=== PATIENT | female | born 1990 | race Two or more races ===

== ENCOUNTER 2018-07-05 14:15 | Emergency (ER) | payer OTHER ==
[~2018-07-05] VITALS: Ht 157.5 cm; Wt 97.1 kg
[2018-07-05] MEDS ORDERED: IV NORMAL SALINE 1000ML BAG 1,000 ML IV SCH (14:46)
--- NOTE | 2018-07-05 14:58 | PHYS DOC ---
Past Medical History Past Medical History: No Pertinent History Past Surgical History: Appendectomy Alcohol Use: None Drug Use: None Adult General Chief Complaint Chief Complaint: ABDOMINAL PAIN HPI HPI Patient is a 27 year old female who presents with complaining of abdominal pain. Patient complaining of intermittent episodes of right-sided abdominal pain for the last 5 days as a sharp pain that happens several times a day and getting worse with empty stomach. She rated her pain 7/10 and complaining of nausea and 2 episodes of nonbloody vomiting. Patient states she had diarrhea that resolved after one day and has had normal bowel movement for 2 times every day patient denies fever and chills, sick contact, urinary symptoms, vaginal bleeding or discharge, , history of abdominal pain. Patient states she took admitted once without improvement of her pain. Patient has history of appendectomy. Review of Systems Review of Systems Constitutional: Denies fever or chills [] Eyes: Denies change in visual acuity, redness, or eye pain [] HENT: Denies nasal congestion or sore throat [] Respiratory: Denies cough or shortness of breath [] Cardiovascular: No additional information not addressed in HPI [] GI: Reports abdominal pain, nausea, vomiting, diarrhea [] : Denies dysuria or hematuria [] Musculoskeletal: Denies back pain or joint pain [] Integument: Denies rash or skin lesions [] Neurologic: Denies headache, focal weakness or sensory changes [] Endocrine: Denies polyuria or polydipsia [] All other systems were reviewed and found to be within normal limits, except as documented in this note. Current Medications Current Medications Current Medications Medications (Trade) Dose Ordered Sig/[facility] Start Time Stop Time Status Last Admin Dose Admin Ketorolac Tromethamine (Toradol 30mg Vial) 30 mg 1X ONCE 07/05/18 15:00 07/05/18 15:01 DC 07/05/18 15:27 30 MG Ondansetron HCl (Zofran) 4 mg 1X ONCE 07/05/18 15:00 07/05/18 15:01 DC 07/05/18 15:28 4 MG Sodium Chloride 1,000 ml @ 1,000 mls/hr Q1H 07/05/18 14:46 07/05/18 15:45 DC 07/05/18 15:24 1,000 MLS/HR Allergies Allergies Allergies Coded Allergies Type Severity Reaction Last Updated Verified No Known Drug Allergies 07/05/18 No Physical Exam Physical Exam Constitutional: Well developed, well nourished, mild distress, non-toxic appearance. [] HENT: Normocephalic, atraumatic, oropharynx moist. Eyes: PERRLA, EOMI, conjunctiva normal, no discharge. [] Neck: Normal range of motion, no tenderness, supple, no stridor. [] Cardiovascular:Heart rate regular rhythm, no murmur [] Lungs & Thorax: Bilateral breath sounds clear to auscultation [] Abdomen: Bowel sounds normal, soft, right upper quadrant guarding, no tenderness , no masses, no pulsatile masses. [] Skin: Warm, dry, no erythema, no rash. [] Back: No tenderness, no CVA tenderness. [] Extremities: No tenderness, no cyanosis, no clubbing, ROM intact, no edema. [] Neurologic: Alert and oriented X 3, normal motor function, normal sensory function, no focal deficits noted. [] Psychologic: Affect normal, judgement normal, mood normal. [] Current Patient Data Vital Signs Vital Signs Date Time Temp Pulse Resp B/P (MAP) Pulse Ox O2 Delivery O2 Flow Rate FiO2 07/05/18 15:29 87 16 131/79 (96) 98 Room Air 07/05/18 14:30 98.8 98.8 Lab Values Laboratory Tests Test 07/05/18 14:25 07/05/18 14:28 White Blood Count 7.4 x10^3/uL (4.0-11.0) Red Blood Count 4.79 x10^6/uL (3.50-5.40) Hemoglobin 14.2 g/dL (12.0-15.5) Hematocrit 42.5 % (36.0-47.0) Mean Corpuscular Volume 89 fL (79-100) Mean Corpuscular Hemoglobin 30 pg (25-35) Mean Corpuscular Hemoglobin Concent 33 g/dL (31-37) Red Cell Distribution Width 12.8 % (11.5-14.5) Platelet Count 250 x10^3/uL (140-400) Neutrophils (%) (Auto) 79 % (31-73) H Lymphocytes (%) (Auto) 15 % (24-48) L Monocytes (%) (Auto) 5 % (0-9) Eosinophils (%) (Auto) 0 % (0-3) Basophils (%) (Auto) 0 % (0-3) Neutrophils # (Auto) 5.8 x10^3uL (1.8-7.7) Lymphocytes # (Auto) 1.1 x10^3/uL (1.0-4.8) Monocytes # (Auto) 0.4 x10^3/uL (0.0-1.1) Eosinophils # (Auto) 0.0 x10^3/uL (0.0-0.7) Basophils # (Auto) 0.0 x10^3/uL (0.0-0.2) Urine Collection Type Unknown Urine Color Rosario Urine Clarity Clear Urine pH 6.0 Urine Specific [place] 1.025 Urine Protein Negative mg/dL (NEG-TRACE) Urine Glucose (UA) Negative mg/dL (NEG) Urine Ketones (Stick) 15 mg/dL (NEG) Urine Blood Negative (NEG) Urine Nitrite Negative (NEG) Urine Bilirubin Negative (NEG) Urine Urobilinogen Dipstick 0.2 mg/dL (0.2 mg/dL) Urine Leukocyte Esterase Negative (NEG) Urine RBC 0 /HPF (0-2) Urine WBC 1-4 /HPF (0-4) Urine Squamous Epithelial Cells Many /LPF Urine Bacteria Moderate /HPF (0-FEW) Urine Mucus Marked /LPF Sodium Level 135 mmol/L (136-145) L Potassium Level 3.6 mmol/L (3.5-5.1) Chloride Level 100 mmol/L (98-107) Carbon Dioxide Level 23 mmol/L (21-32) Anion Gap 12 (6-14) Blood Urea Nitrogen 11 mg/dL (7-20) Creatinine 0.5 mg/dL (0.6-1.0) L Estimated GFR (Cockcroft-Gault) 148.0 BUN/Creatinine Ratio 22 (6-20) H Glucose Level 98 mg/dL (70-99) Lactic Acid Level 1.0 mmol/L (0.4-2.0) Calcium Level 8.6 mg/dL (8.5-10.1) Total Bilirubin 0.9 mg/dL (0.2-1.0) Aspartate Amino Transferase (AST) 21 U/L (15-37) Alanine Aminotransferase (ALT) 55 U/L (14-59) Alkaline Phosphatase 89 U/L (46-116) Total Protein 8.2 g/dL (6.4-8.2) Albumin 3.8 g/dL (3.4-5.0) Albumin/Globulin Ratio 0.9 (1.0-1.7) L Lipase 104 U/L (73-393) POC Urine HCG, Qualitative Hcg negative (Negative) Laboratory Tests 07/05/18 14:25 Laboratory Tests 07/05/18 14:25 EKG EKG [] Radiology/Procedures Radiology/Procedures [facility] [address] [place] [address] IMAGING REPORT Signed PATIENT: WILLAM COWAN ACCOUNT: [id number] : 1990 LOCATION: ER AGE: 27 SEX: F EXAM STATUS: REG ER ORD. PHYSICIAN: YOMAIRA JUNIOR MD REASON: right upper quadrant pain PROCEDURE: ABDOMEN LTD Limited abdomen ultrasound study Clinical indications: Right upper quadrant abdominal pain. FINDINGS: Midline structures including the abdominal aorta and IVC and pancreas are not visualized due to overlying bowel gas. There is severe diffuse attenuation of sound throughout the liver which may be seen with fatty infiltration of the liver. This limits sonographic evaluation of the liver for focal hepatic masses. In fact, it is difficult to see the posterior aspect of the liver and therefore accurate liver length measurement cannot be made. However, the liver measures at least 16.6 cm in length. The gallbladder is normal without gallstones. The extra hepatic bile duct measures 5.2 mm in caliber which is normal. The length of the right kidney is 11.6 cm. No hydronephrosis or renal mass or perinephric fluid collection is seen on this side. IMPRESSION: Severe fatty infiltration of the liver. Midline structures are obscured. Normal sonographic evaluation of the gallbladder. Electronically signed by: Soniya Her MD (07/05/2018 3:32 PM) [facility] DICTATED and SIGNED BY: SONIYA HER MD DATE: 07/05/18 1532 Course & Med Decision Making Course & Med Decision Making Pertinent Labs and Imaging studies reviewed. (See chart for details) Evaluation of patient in ER showed 27-year-old female patient with complaining of intermittent episodes of right-sided abdominal pain and nausea and diarrhea and vomiting for 5 days. Patient had unremarkable physical exam. Gallbladder ultrasound was unremarkable except for severe fatty liver. Patient treated with IV fluids and Zofran and Toradol and felt better. Patient was informed about the result and needs to follow-up with her primary care physician regarding fatty liver. Dragon Disclaimer Dragon Disclaimer This electronic medical record was generated, in whole or in part, using a voice recognition dictation system. Departure Departure Impression: Primary Impression: Acute gastroenteritis Additional Impressions: Fatty liver Abdominal pain Disposition: HOME, SELF-CARE (at 1618) Condition: IMPROVED Patient Instructions: Diet for Diarrhea, Adult, Viral Gastroenteritis Additional Instructions: Drink plenty of liquids Follow-up with your primary care physician in 3-5 days Return to ER if not getting better Do not take solid food today Scripts Ranitidine Hcl (ZANTAC) 150 Mg Tablet 1 TAB PO BID for dyspepsia, #20 TAB 0 Refills Prov: YOMAIRA JUNIOR MD 07/05/18 Ondansetron Hcl (ZOFRAN) 4 Mg Tablet 1 TAB PO PRN Q6-8HRS for nausea, #12 TAB Prov: YOMAIRA JUNIOR MD 07/05/18 Hydrocodone/Apap 5-325 (NORCO 5-325 TABLET) 1 Each Tablet 1 TAB PO PRN Q6HRS PRN for PAIN, #14 TAB 0 Refills Prov: YOMAIRA JUNIOR MD 07/05/18 Problem Qualifiers YOMAIRA JUNIOR MD Jul 05, 2018 14:57
[2018-07-05] MEDS ORDERED: ONDANSETRON PF 4 MG/2 ML VIAL. IV ONE (15:00)
[2018-07-05] MEDS ORDERED: KETOROLAC 30 MG/ML VIAL. IV ONE (15:00)
[2018-07-05 15:22] LABS: BILIRUBIN,URINE NEGATIVE (NEG); CLARITY,URINE CLEAR; COLOR,URINE AMBER; NITRITE,URINE NEGATIVE (NEG); PROTEIN,URINE NEGATIVE (NEG-TRACE); UROBILINOGEN,URINE 0.2 mg/dL (0.2 mg/dL)
[2018-07-05 15:28] LABS: BASO % 0 % (0-3); EOS % 0 % (0-3); HEMATOCRIT 42.5 % (36.0-47.0); HEMOGLOBIN 14.2 g/dL (12.0-15.5); LYMPH # 1.1 x10^3/uL (1.0-4.8); LYMPH % 15 % (24-48); MEAN CORPUSCULAR HEMOGLOBIN 30 pg (25-35); MEAN CORPUSCULAR HGB CONC 33 g/dL (31-37); MEAN CORPUSCULAR VOLUME 89 fL (79-100); MONO # 0.4 x10^3/uL (0.0-1.1); MONO % 5 % (0-9); NEUT # 5.8 x10^3uL (1.8-7.7); NEUT % 79 % (31-73); PLATELET COUNT 250 x10^3/uL (140-400); RED BLOOD COUNT 4.79 x10^6/uL (3.50-5.40); RED CELL DISTRIBUTION WIDTH 12.8 % (11.5-14.5); WHITE BLOOD COUNT 7.4 x10^3/uL (4.0-11.0)
[2018-07-05 15:31] LABS: SQUAMOUS EPITHELIAL CELL,UR MANY /LPF
[2018-07-05 15:32] LABS: BACTERIA,URINE MODERATE /HPF (0-FEW); RBC,URINE 0 /HPF (0-2)
--- NOTE | 2018-07-05 15:35 | RAD ---
Limited abdomen ultrasound study Clinical indications: Right upper quadrant abdominal pain. FINDINGS: Midline structures including the abdominal aorta and IVC and pancreas are not visualized due to overlying bowel gas. There is severe diffuse attenuation of sound throughout the liver which may be seen with fatty infiltration of the liver. This limits sonographic evaluation of the liver for focal hepatic masses. In fact, it is difficult to see the posterior aspect of the liver and therefore accurate liver length measurement cannot be made. However, the liver measures at least 16.6 cm in length. The gallbladder is normal without gallstones. The extra hepatic bile duct measures 5.2 mm in caliber which is normal. The length of the right kidney is 11.6 cm. No hydronephrosis or renal mass or perinephric fluid collection is seen on this side. IMPRESSION: Severe fatty infiltration of the liver. Midline structures are obscured. Normal sonographic evaluation of the gallbladder. Electronically signed by: Geo Her MD (07/05/2018 3:32 PM) [facility]
[2018-07-05 15:48] LABS: CALCIUM 8.6 mg/dL (8.5-10.1); CREATININE 0.5 mg/dL (0.6-1.0); POTASSIUM 3.6 mmol/L (3.5-5.1)
[2018-07-05 15:54] LABS: ALBUMIN 3.8 g/dL (3.4-5.0); ALBUMIN/GLOBULIN RATIO 0.9 (1.0-1.7); TOTAL BILIRUBIN 0.9 mg/dL (0.2-1.0); TOTAL PROTEIN 8.2 g/dL (6.4-8.2)
[2018-07-05] MEDS ORDERED: HYDR-3164 PO (16:21)
[2018-07-05] MEDS ORDERED: RANI-376 PO (16:21)
[2018-07-05] MEDS ORDERED: ONDA4TAB7 PO (16:21)
[2018-07-05 16:30] VITALS: BP 123/70
== END 2018-07-05 16:41 | disposition home or self-care (01) ==
LOC: ER 14:15
DX: K52.89 Other specified noninfective gastroenteritis and colitis (principal); K76.0 Fatty (change of) liver, not elsewhere classified; R11.2 Nausea with vomiting, unspecified; Z90.89 Acquired absence of other organs
CPT/HCPCS: 36415; 76705; 80053; 81001; 81025; 83605; 83690; 85025; 87086; 96361; 96374; 96375; 99284; J1885; J2405; J7030